=== PATIENT | female | born 1990 | race Caucasian/White ===

== ENCOUNTER 2016-05-19 11:17 | Emergency (ER) | payer OTHER ==
[~2016-05-19 11:17] MED LIST: ABILIFY PO; ALBUTEROL17 GM INH; AMOXICILLIN PO; AMOXICILLIN500 M1 PO; AUGMENTIN PO; BACTRIM DS TABL1 TA1 PO; BACTRIM DS TABL1 TAB PO; CIPRO PO; COLACE50 MG PO; DARVOCET-N 1001 TAB PO; FLAGYL PO; FLEXERIL PO; FLEXERIL10 MG PO; IBUPROFEN100 MG PO; KEFLEX500 M1 PO; KEFLEX500 MG PO; KETOPROFEN PO; MEDROL DOSEPAK4 MG DOB; MIRALAX17 GM DOB; MOBIC PO; NO MEDICATIONS; ORUDIS75 M1 PO; PERCOCET5/325 PO; PHENERGAN PO; PHENERGAN25 MG PO; PREDNISONE PO; TYLOX 5-500 CA1 EACH PO; VICODIN PO; ZITHROMAX500 MG PO; [UNRECOGNIZED DRUG - OTHER] PO
== END 2016-05-19 12:05 | disposition home or self-care (01) ==
LOC: SED 11:17
DX: N91.2 Amenorrhea, unspecified (principal); Z71.1 Person with feared health complaint in whom no diagnosis is made; F41.9 Anxiety disorder, unspecified; Z90.49 Acquired absence of other specified parts of digestive tract
CPT/HCPCS: 36415; 84703; 99283

== ENCOUNTER 2016-08-16 15:12 | Emergency (ER) | payer OTHER ==
--- NOTE | ~2016-08-16 | CT2 ---
[facility] A Service of [facility] & [facility] / [facility] RADIOLOGY TEXT RESULTS PATIENT: MARGA CARLISLE LOCATION: [facility] : [birth year] UNIT #: [id number] AGE: [address]: Ramón Sneed MD SEX: F ORDER DR: [id number] [facility] [address] [place], [place] [address] [id number] E MR#: [id number] #: [id number] NAME: MARGA CARLISLE : 1990 SEX: F STUDY DATE/TIME: 08/16/2016 18:00 UNIT: [facility] ROOM: STUDY DESCRIPTION: CT Abd and Pelv W Cont Attending Physician: Ramón Sneed M.D. Ordering Physician: Ramón Sneed M.D. Primary Care Physician: Driss Mcneil M.D. MEDICAL IMAGING REPORT This report is preliminary unless electronic signature is present EXAM CT abdomen and pelvis with IV contrast COMPARISON January 18, 2016 and June 17, 2011. INDICATIONS 26-year-old female with right lower quadrant abdominal pain for [address] imaging of the abdomen and pelvis was performed after IV administration of 100 mL Isovue-370. Coronal and sagittal reformats were constructed. This CT exam was performed with one or more of the following radiation dose reduction techniques: Automatic exposure control, adjustment of mA and/or kV according to patient size, and iterative reconstruction. Small fat-containing umbilical hernia. No acute fractures or suspicious osseous lesions. Band-like atelectasis in the anterior inferior right middle lobe. Subsegmental dependent atelectasis noted in both lower lobes. Prior cholecystectomy. The liver, pancreas, spleen, adrenal glands and kidneys are unremarkable. Normal biliary caliber. No hydronephrosis or hydroureter. No renal or ureteral calculi. Urinary bladder is within normal limits. CT appearance of the uterus is within normal limits in this 26-year-old patient. Low-density lesions in both ovaries are not well characterized, likely reflecting benign cysts or follicles. Largest of these measures up to 1.5 cm in the left ovary and has indeterminate density. No free fluid or pneumoperitoneum. No bowel obstruction. Changes of appendectomy are noted. Abdominal aorta is normal in course and caliber, with patency of its main branches. No evidence of venous thrombosis. Scattered retroperitoneal lymph nodes are not pathologically enlarged by CT size criteria and grossly stable comparing to 2013. [facility] A Service of [facility] RADIOLOGY TEXT RESULTS PATIENT: BARBADIAN,MARGA N LOCATION: [facility] : [birth year] UNIT #: [id number] AGE: [address]: Ramón Sneed MD SEX: F ORDER DR: IMPRESSION 1. No acute abnormality in the abdomen, pelvis or imaged lower chest. 2. Prior cholecystectomy and appendectomy. The uterus is normal in appearance. 3. Bilateral hypoattenuating round, oval structures in both ovaries, not well characterized on CT. Largest of these measures up to 1.5 cm. Most likely, these represent normal follicles and/or cysts. One could consider follow-up imaging in 6 weeks with endovaginal pelvic ultrasound to exclude suspicious ovarian lesion. Dictated by... Genaro Sharif M.D. THIS IS AN ELECTRONICALLY VERIFIED REPORT Genaro Sharif M.D. at 08/17/2016 3:25 PM PHYLLIS/tom TD: 08/16/2016 23:01 JOB #: [id number] MEDICAL IMAGING REPORT Page 1 of 1 COPY
[2016-08-16 15:36] LABS: URINE SOURCE CLEAN CATCH
[2016-08-16 15:42] LABS: URINE APPEARANCE CLOUDY; URINE BILIRUBIN NEG (NEG); URINE BLOOD NEG (NEG); URINE COLOR YELLOW; URINE GLUCOSE NEG (NEG); URINE KETONE NEG (NEG); URINE LEUKOCYTE ESTERASE NEG (NEG); URINE NITRATE NEG (NEG); URINE PH 6.5 (5-8); URINE PROTEIN NEG (NEG); URINE SPECIFIC GRAVITY 1.022 (1.003-1.035); URINE UROBILINOGEN 0.2 MG/DL (NEG)
[2016-08-16 15:53] LABS: CULTURE INDICATED? NO
[2016-08-16 16:13] LABS: BASOPHIL# 0.1 X10e3 (0-0.3); BASOPHIL% 0.9 % (0-2.5); EOSINOPHIL# 0.1 X10e3 (0-0.7); EOSINOPHIL% 1.5 % (0.0-7.0); HEMATOCRIT 41.6 % (35.0-45.0); HEMOGLOBIN 13.7 gm/dL (12.0-16.0); MEAN CELL VOLUME 88.2 FL (83-96); MEAN CORPUSCULAR HEMOGLOBIN 29.1 PG (28-34); MONOCYTE# 0.5 X10e3 (0-1.0); MONOCYTE% 5.3 % (3.0-12.0); NEUTROPHIL# 5.3 X10e3 (1.5-7.1); NEUTROPHIL% 59.3 % (40-75); PLATELET COUNT 304 X10e3 (140-420); RED BLOOD COUNT 4.72 X10e (3.90-5.30); RED CELL DISTRIBUTION WIDTH 13.4 % (11.0-15.5)
[2016-08-16 16:17] LABS: DIFF IND NO
[2016-08-16 16:36] LABS: ALBUMIN SERUM 4.1 g/dL (3.5-5.0); BILIRUBIN, DIRECT 0.1 mg/dL (0.0-0.2); BILIRUBIN,INDIRECT 0.5 mg/dL (0.0-0.9); BILIRUBIN,TOTAL 0.6 mg/dL (0.2-2.0); CALCIUM SERUM 9.5 mg/dL (8.4-10.2); CREATININE SERUM 0.6 mg/dL (0.6-1.4); POTASSIUM 3.8 mmol/L (3.5-5.1); PROTEIN TOTAL SERUM 7.4 g/dL (6.0-8.3)
[2016-08-19 02:38] LABS: CHLAMYDIA TRACH Not Detected (Not Detected); N GONOR Not Detected (Not Detected)
== END 2016-08-16 19:50 | disposition home or self-care (01) ==
LOC: CED 15:12
PROVIDERS: Emergency Medicine
DX: N83.209 Unspecified ovarian cyst, unspecified side (principal); F41.9 Anxiety disorder, unspecified; Z90.49 Acquired absence of other specified parts of digestive tract
CPT/HCPCS: 36415; 74177; 80048; 80076; 81003; 83690; 85025; 87491; 87591; 87808; 87905; 99284; J0500; J1885; Q9967